=== PATIENT | male | born 1960 | race Caucasian/White ===

== ENCOUNTER 2017-01-15 16:59 | Emergency (ER) | payer OTHER ==
[~2017-01-15] VITALS: Ht 193 cm; Wt 110.7 kg
[~2017-01-15 16:59] MED LIST: CELE200C PO; DILT180C11 PO; DIVA500T2 PO; ESOM40CA PO; LORA10TA65 PO; OXYC-323 PO; PARO20TA3 PO; TIZA4TAB PO; TRAZ50TA15 PO
[2017-01-15 17:12] VITALS: BP 132/77
[2017-01-15 17:43] LABS: BASO % 0 % (0-3); EOS # 0.3 x10^3/uL (0.0-0.7); EOS % 5 % (0-3); HEMATOCRIT 39.9 % (39.0-53.0); HEMOGLOBIN 13.6 g/dL (13.0-17.5); LYMPH # 2.2 x10^3/uL (1.0-4.8); LYMPH % 40 % (24-48); MEAN CORPUSCULAR HEMOGLOBIN 31 pg (25-35); MEAN CORPUSCULAR HGB CONC 34 g/dL (31-37); MEAN CORPUSCULAR VOLUME 91 fL (79-100); MONO # 0.5 x10^3/uL (0.0-1.1); MONO % 10 % (0-9); NEUT # 2.4 x10^3uL (1.8-7.7); NEUT % 44 % (31-73); PLATELET COUNT 145 x10^3/uL (140-400); RED BLOOD COUNT 4.38 x10^6/uL (4.30-5.70); RED CELL DISTRIBUTION WIDTH 13.3 % (11.5-14.5); WHITE BLOOD COUNT 5.5 x10^3/uL (4.0-11.0)
--- NOTE | 2017-01-15 17:47 | PHYS DOC ---
Text Text See Dr. Heard chart for details. US- legs shows no findings of DVT- See formal report when available. Impression: 1. Stasis dermatitis Patient must follow-up primary care. Review all ultrasound completed here. Return if any concerns. (JERE CASTRO MD) General Chief Complaint: LOWER EXTREMITY SWELLING Stated Complaint: LOWER EXTREMITY PAIN Time Seen by MD: 17:10 Source: patient Exam Limitations: no limitations Problems: (CECILE HEARD DO) Time Seen by MD: 20:01 Problems: (JERE CASTRO MD) History of Present Illness Initial Comments Pt is 56/M to ED c/o b/l leg swelling/pain. Pt states he's been in bed past 8 days with back pain. Today he tried to go to work, at work he noticed posterior calf pain. When he looked at his legs he noted that his calves were red swollen and tender. Upon speaking to his spouse who is RN, she brought him to ED to r/o DVT. No leg weakness, no cp/sob/unger/ focal neurodef/vision change/palpitations. No prearrival treatment, no h/o coagulopathy pt is not a smoker. Onset: this morning Severity: moderate Pain/Injury Location: bilateral leg Method of Injury: unknown Modifying Factors: worse with jarring, worse with movement, improves with rest (CECILE HEARD DO) Allergies: Coded Allergies: iodine (Verified Allergy, Intermediate, rash, 01/15/17) Past Medical History Medical History: other (SVT, chronic back pain) Surgical History: cholecystectomy, other (L shoulder, R knee, C 5-6 fusion) (CECILE HEARD DO) Family History Significant Family History: heart disease (CECILE HEARD DO) Social History Smoker: non-smoker Alcohol: rarely Drugs: none (CECILE HEARD DO) Review of Systems Constitutional: denies chills, denies fever, denies malaise Respiratory: denies cough, denies shortness of breath Cardiovascular: denies chest pain, denies palpitations Gastrointestinal: denies nausea, denies vomiting Musculoskeletal: see HPI Skin: see HPI Psychiatric/Neurological: denies headache, denies numbness, denies paresthesia , denies weakness (CECILE HEARD DO) Physical Exam General Appearance: WD/WN, no apparent distress HEENT: normal ENT inspection Neck: non-tender, supple Cardiovascular/Respiratory: normal peripheral pulses, no respiratory distress Back: no CVA tenderness, no vertebral tenderness Legs: bilateral leg other (2+ pitting LE edema, +jono's b/l with erythema, hardness R>L) Neurologic/Tendon: normal sensation, normal motor functions, normal tendon functions, responds to pain, no evidence tendon injury Psychiatric: alert, oriented x 3 Skin: warm/dry (calf erythema) (CECILE HEARD DO) Orders, Labs, Meds EKG: NSR 76 bpm no STEMI Labs/US pending Pt signed out to Dr Castro at 1800 shift change. See his documentation for results/disposition. (CECILE HEARD DO) CECILE HEARD DO Jan 15, 2017 17:47 JERE CASTRO MD Jan 17, 2017 00:04
[2017-01-15 18:01] LABS: GFR 77.6
--- NOTE | 2017-01-15 18:35 | EKG ---
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
--- NOTE | 2017-01-15 18:54 | RAD ---
PROCEDURE Bilateral lower extremity venous duplex study 01/15/2017 HISTORY Bilateral leg swelling. TECHNIQUE Using a combination of real-time ultrasound imaging and color flow and pulse Doppler imaging techniques along with graded compression augmentation, duplex evaluation the major deep venous structures of both lower extremities was performed. Multiple images were obtained. FINDINGS There is no sonographic evidence of deep venous thrombosis involving the visualized deep venous structures of either lower extremity. IMPRESSION Negative study. Electronically signed by: Ricardo Sena MD (Jan 15, 2017 18:53:26)
== END 2017-01-15 20:20 | disposition home or self-care (01) ==
LOC: ER 17:12
DX: I87.2 Venous insufficiency (chronic) (peripheral) (principal); M79.605 Pain in left leg; M79.604 Pain in right leg; G89.29 Other chronic pain; R22.43 Localized swelling, mass and lump, lower limb, bilateral; Z91.041 Radiographic dye allergy status; Z98.890 Other specified postprocedural states
CPT/HCPCS: 36415; 80048; 82550; 83880; 84484; 85027; 85379; 85610; 85730; 93005; 93970; 99285-25

== ENCOUNTER 2017-04-14 13:53 | Emergency (ER) | payer OTHER ==
[~2017-04-14] VITALS: Ht 193 cm; Wt 113.4 kg
[2017-04-14 13:58] VITALS: BP 148/66
[2017-04-14] MEDS ORDERED: FLUORESCEIN 1MG EYE STRIP. OU ONE (14:30)
[2017-04-14] MEDS ORDERED: TETRACAINE 0.5% OPHTH SOLUTION 4ML BOTTLE. OS ONE (14:30)
[2017-04-14] MEDS ORDERED: FLUORESCEIN 1MG EYE STRIP. OS ONE (14:30)
[2017-04-14] MEDS ORDERED: ERYT1OIN6 OP (14:43)
[2017-04-14] MEDS ORDERED: CYCL2DRO3 OP (14:43)
[2017-04-14] MEDS ORDERED: NAPR275T59 PO (14:43)
--- NOTE | 2017-04-14 14:43 | PHYS DOC ---
Past History Past Medical History: Hypertension, Other Past Surgical History: Cholecystectomy, Other Additional Past Surgical Histo: ultimate orthopedic surgeries to include meniscal injury in his knees bilat Smoking: Quit Less Than 1 Year Alcohol Use: Rarely Drug Use: None Adult General Chief Complaint Chief Complaint: EYE PROBLEMS HPI HPI This is a pleasant 56-year-old male with mostly orthopedic problems and chronic pain issue secondary to overuse while in the . He was outside cutting branches from a tree when one actually fell and struck him in the left eye. Patient immediately felt pain and a foreign body sensation after being struck in the eye. He does not work or corrective lenses or contact lenses. He denies any double vision, blurred vision, foreign body sensation at this time only pain. Patient is having mild drainage and only very mild redness as well is actually improved. Patient is no pain when he blinks there is no facial numbness , there is no history of URI symptoms or other complaints. Patient denies any headache. Patient also denies any other trauma. Review of Systems Review of Systems Constitutional: Denies fever or chills [] Eyes: he has had a little bit of blurred vision and eye pain after being struck in the eye with a tree branch HENT: Denies nasal congestion or sore throat [] Respiratory: Denies cough or shortness of breath [] Cardiovascular: No additional information not addressed in HPI [] GI: Denies abdominal pain, nausea, vomiting, bloody stools or diarrhea [] : Denies dysuria or hematuria [] Musculoskeletal: Denies back pain or joint pain [] Integument: Denies rash or skin lesions [] Neurologic: Denies headache, focal weakness or sensory changes [] Current Medications Current Medications Current Medications Medications (Trade) Dose Ordered Sig/Heidi Start Time Stop Time Status Last Admin Dose Admin Fluorescein Sodium (Ful-Bryanna 1mg) 1 strip 1X ONCE 04/14/17 14:30 04/14/17 14:31 Tetracaine HCl (Tetracaine) 1 drop 1X ONCE 04/14/17 14:30 04/14/17 14:31 DC Allergies Allergies Allergies Coded Allergies Type Severity Reaction Last Updated Verified iodine Allergy Intermediate rash 01/15/17 Yes Physical Exam Physical Exam Constitutional: Well developed, well nourished, no acute distress, non-toxic appearance. [] HENT: Normocephalic, atraumatic, bilateral external ears normal, oropharynx moist, no oral exudates, nose normal. [] Eyes: PERRLA, EOMI, no discharge. Patient's conjunctivae are mildly injected. Patient's pain improved with the topical application of tetracaine. Patient has no Caleb's after staining of the surface of his eye, he's got no dendrites he' s got evidence of a small corneal abrasion at the 3 clock position just the lateral aspect of his iris. Patient's anterior chambers deep and quiet, lens is clear, the retinal exam shows a clear right now with no evidence of retinal hemorrhages. Patient's optic nerve is intact. Patient states her acuities were also evaluated by me and recorded by nursing staff. His eyelid noted and there is no foreign body noted. On note there is also no rink sign. Neck: Normal range of motion, no tenderness, supple, no stridor. [] Cardiovascular:Heart rate regular rhythm, no murmur [] Lungs & Thorax: Bilateral breath sounds clear to auscultation [] Skin: Warm, dry, no erythema, no rash. [] Neurologic: Alert and oriented X 3, EKG EKG [] Radiology/Procedures Radiology/Procedures [] Course & Med Decision Making Course & Med Decision Making Pertinent Labs and Imaging studies reviewed. (See chart for details) I reviewed patient's nursing notes, visual acuities, vital signs and my physical exam findings are consistent with a corneal abrasion likely secondary to traumatic injury. Updated tetanus shot done. Be given some Cyclogyl, erythromycin ointment and follow-up with his PCP for repeat some of exam in 12-24 hours to see that his eyes improving. Given precautions to return for any increasing pain , decreased sensation, or decreased visual acuity despite treatment. Impression: Hypertension, corneal abrasion, Disposition: PCP FU in 24 hrs for repeat slit lamp exam if symptoms are not improved. [] Dragon Disclaimer Dragon Disclaimer This chart was dictated in whole or in part using Voice Recognition software in a busy, high-work load, and often noisy Emergency Department environment. It may contain unintended and wholly unrecognized errors or omissions. Departure Departure: Impression: Primary Impression: Corneal abrasion, left Disposition: HOME, SELF-CARE Referrals: KEYONNA BUCK DO (PCP) Patient Instructions: Eye - Corneal Abrasion, Hypertension Additional Instructions: Please return for any new or increasing symptoms, decreased visual acuity or given any questions or concerns. Scripts Erythromycin Base (Erythromycin) 1 Gm Oint...g. 1 GM OP TID for 5 Days, MISC Prov: THOMPSON ASHBY MD 04/14/17 Cyclopentolate Hcl (CYCLOGYL) 2 Ml Drops 2 ML OP TID for 3 Days, DROP Prov: THOMPSON ASHBY MD 04/14/17 Naproxen Sodium (NAPROXEN SODIUM) 275 Mg Tablet 1 MG PO BID for 7 Days, TAB Prov: THOMPSON ASHBY MD 04/14/17 THOMPSON ASHBY MD Apr 14, 2017 14:43
[2017-04-14] MEDS ORDERED: DIPHTH,PERTUSS(ACELL),TET TOX 0.5 ML DISP.SYRIN. VAX IM ONE (15:00)
== END 2017-04-14 14:50 | disposition home or self-care (01) ==
LOC: ER 13:53
DX: S05.02XA Injury of conjunctiva and corneal abrasion without foreign body, left eye, initial encounter (principal); I10 Essential (primary) hypertension; G89.29 Other chronic pain; Z87.891 Personal history of nicotine dependence; Z91.041 Radiographic dye allergy status; W22.8XXA Striking against or struck by other objects, initial encounter; Y93.89 Activity, other specified; Y99.8 Other external cause status; Y92.89 Other specified places as the place of occurrence of the external cause
CPT/HCPCS: 90471; 90715; 99283-25

== ENCOUNTER 2018-05-07 17:56 | Emergency (ER) | payer OTHER ==
[~2018-05-07] VITALS: Ht 193 cm; Wt 120.2 kg
[2018-05-07 17:56] VITALS: BP 107/68
[~2018-05-07 17:56] MED LIST changes: +CYCL2DRO3 OP; +ERYT1OIN6 OP; +NAPR275T59 PO; +TRAZ-85 PO; -TRAZ50TA15 PO
--- NOTE | 2018-05-07 18:57 | PHYS DOC ---
Past History Past Medical History: Hypertension, Other Past Surgical History: Cholecystectomy Additional Past Surgical Histo: ultimate orthopedic surgeries to include meniscal injury in his knees bilat Smoking: Quit Less Than 1 Year Alcohol Use: Occasionally Drug Use: None Adult General Chief Complaint Chief Complaint: BACK PAIN OR INJURY [facility] HPI 67-year-old male presents with low back pain. 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 No radiculopathy is worse on the left and goes down to his knee. On the right side it only radiates into his buttocks. Patient denies loss of bowel or bladder. His sensation is intact. He is able to walk, but is very painful. Patient has known L4 L5 S1 herniated disks for which he takes Percocet. The patient did take 1 Percocet before he came to the hospital but it has not helped. Patient denies fever or chills. He was feeling fine prior to this event. He has no other complaints. Review of Systems Review of Systems Constitutional: Denies fever or chills [] Eyes: Denies change in visual acuity, redness, or eye pain [] HENT: Denies nasal congestion or sore throat [] Respiratory: Denies cough or shortness of breath [] Cardiovascular: No additional information not addressed in HPI [] GI: Denies abdominal pain, nausea, vomiting, bloody stools or diarrhea [] : Denies dysuria or hematuria [] Musculoskeletal: Low back pain with radiculopathy[] Integument: Denies rash or skin lesions [] Neurologic: Denies headache, focal weakness or sensory changes [] Endocrine: Denies polyuria or polydipsia [] All other systems were reviewed and found to be within normal limits, except as documented in this note. Current Medications Current Medications Current Medications Medications (Trade) Dose Ordered Sig/Heidi Start Time Stop Time Status Last Admin Dose Admin Hydromorphone HCl (Dilaudid) 1 mg 1X ONCE 05/07/18 19:00 05/07/18 19:01 Methylprednisolone Sodium Succinate (SOLU-Medrol 125MG VIAL) 125 mg 1X ONCE 05/07/18 19:00 05/07/18 19:01 Ondansetron HCl (Zofran) 4 mg 1X ONCE 05/07/18 19:00 05/07/18 19:01 Allergies Allergies Allergies Coded Allergies Type Severity Reaction Last Updated Verified iodine Allergy Intermediate rash 01/15/17 Yes Physical Exam Physical Exam Constitutional: Well developed, well nourished, no acute distress, non-toxic appearance. Patient lying on his left side and a half position. [] HENT: Normocephalic, atraumatic, bilateral external ears normal, oropharynx moist, no oral exudates, nose normal. [] Eyes: PERRLA, EOMI, conjunctiva normal, no discharge. [] Neck: Normal range of motion, no tenderness, supple, no stridor. [] Cardiovascular:Heart rate regular rhythm, no murmur [] Lungs & Thorax: Bilateral breath sounds clear to auscultation [] Abdomen: Bowel sounds normal, soft, no tenderness, no masses, no pulsatile masses. [] Skin: Warm, dry, no erythema, no rash. [] Back: Marked tenderness, paraspinal muscle spasm in the lumbar bilateral[] Extremities: No tenderness, no cyanosis, no clubbing, ROM intact, no edema. [] Neurologic: Alert and oriented X 3, normal motor function, normal sensory function, no focal deficits noted. [] Psychologic: Affect normal, judgement normal, mood normal. [] Current Patient Data Vital Signs Vital Signs Date Time Temp Pulse Resp B/P (MAP) Pulse Ox O2 Delivery O2 Flow Rate FiO2 05/07/18 17:56 98.2 79 20 95 Room Air EKG EKG [] Radiology/Procedures Radiology/Procedures [] Impressions: History: Back injury today. Low back pain radiating down both legs. Comparison: CT lumbar spine July 03, 2012. Findings: AP and lateral views of lumbar spine, 3 images. 5 lumbar type vertebral bodies are present. Cholecystectomy clips are present. No acute fracture or acute malalignment is identified. No spondylolysis or spondylolisthesis is appreciated. Relatively mild degeneration is seen with some narrowing of the disc space at L3-4 and L4-5. Impression: No acute osseous traumatic injury identified. Electronically signed by: William Will MD (05/07/2018 7:23 PM) [facility] Course & Med Decision Making Course & Med Decision Making Pertinent Labs and Imaging studies reviewed. (See chart for details) The patient's labs are unremarkable. His lumbar x-ray does not show any acute findings. I have given the patient 1 mg of Dilaudid as well as 125 mg Solu- Medrol IV. He already has pain medication at home. I will discharge him with 5 day course of prednisone for inflammation. [] Dragon Disclaimer Dragon Disclaimer This electronic medical record was generated, in whole or in part, using a voice recognition dictation system. Departure Departure: Referrals: KEYONNA BUCK DO (PCP) Scripts Prednisone (PREDNISONE) 50 Mg Tablet 1 TAB PO DAILY, #5 TAB Prov: MICHELLE HER DO 05/07/18 MICHELLE HER DO May 07, 2018 18:57
[2018-05-07] MEDS ORDERED: methylPREDNISolone SOD SUCC PF 125 MG/2 ML VIAL. IV ONE (19:00)
[2018-05-07] MEDS ORDERED: HYDROmorphone PF 1 MG/ML DISP.SYRIN IV ONE (19:00)
[2018-05-07] MEDS ORDERED: ONDANSETRON PF 4 MG/2 ML VIAL. IV ONE (19:00)
--- NOTE | 2018-05-07 19:26 | RAD ---
History: Back injury today. Low back pain radiating down both legs. Comparison: CT lumbar spine July 03, 2012. Findings: AP and lateral views of lumbar spine, 3 images. 5 lumbar type vertebral bodies are present. Cholecystectomy clips are present. No acute fracture or acute malalignment is identified. No spondylolysis or spondylolisthesis is appreciated. Relatively mild degeneration is seen with some narrowing of the disc space at L3-4 and L4-5. Impression: No acute osseous traumatic injury identified. Electronically signed by: William Will MD (05/07/2018 7:23 PM) [facility]
[2018-05-07 19:42] LABS: BASO % 1 % (0-3); EOS # 0.3 x10^3/uL (0.0-0.7); EOS % 6 % (0-3); HEMATOCRIT 39.2 % (39.0-53.0); HEMOGLOBIN 13.5 g/dL (13.0-17.5); LYMPH # 2.3 x10^3/uL (1.0-4.8); LYMPH % 48 % (24-48); MEAN CORPUSCULAR HEMOGLOBIN 32 pg (25-35); MEAN CORPUSCULAR HGB CONC 35 g/dL (31-37); MEAN CORPUSCULAR VOLUME 91 fL (79-100); MONO # 0.5 x10^3/uL (0.0-1.1); MONO % 11 % (0-9); NEUT # 1.7 x10^3uL (1.8-7.7); NEUT % 35 % (31-73); PLATELET COUNT 136 x10^3/uL (140-400); RED BLOOD COUNT 4.29 x10^6/uL (4.30-5.70); RED CELL DISTRIBUTION WIDTH 13.9 % (11.5-14.5); WHITE BLOOD COUNT 4.9 x10^3/uL (4.0-11.0)
[2018-05-07 19:48] LABS: CALCIUM 9.3 mg/dL (8.5-10.1); GFR 77.3
[2018-05-07] MEDS ORDERED: PRED50TA PO (19:59)
== END 2018-05-07 20:05 | disposition home or self-care (01) ==
LOC: ER 17:56
DX: M54.16 Radiculopathy, lumbar region (principal); I10 Essential (primary) hypertension; Z90.49 Acquired absence of other specified parts of digestive tract; Z87.891 Personal history of nicotine dependence; Z91.041 Radiographic dye allergy status
CPT/HCPCS: 36415; 72100; 80048; 85025; 96374; 96375; 99285; J1170; J2405; J2930

== ENCOUNTER 2020-09-26 19:11 | Emergency (ER) | payer OTHER ==
[~2020-09-26] VITALS: Ht 375.9 cm; Wt 116.0 kg
[~2020-09-26 19:11] MED LIST changes: -OXYC-323 PO; +OXYC1TAB15 PO; +PRED50TA PO; -TIZA4TAB PO; +TIZA4TAB2 PO; +TRAZ-120 PO; -TRAZ-85 PO
[2020-09-26] MEDS ORDERED: IV NORMAL SALINE 500ML 500 ML IV ONE (19:30)
--- NOTE | 2020-09-26 19:33 | EKG ---
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
--- NOTE | 2020-09-26 19:33 | PHYS DOC ---
Past History Past Medical History: Hypertension, Other Past Surgical History: Cholecystectomy Additional Past Surgical Histo: ultimate orthopedic surgeries to include meniscal injury in his knees bilat Smoking: Quit Less Than 1 Year Alcohol Use: Occasionally Drug Use: None General Adult EDM: Chief Complaint: Palpitations HPI: HPI: Patient is a 60-year-old male coming in for palpitations he says since he woke up this morning. Patient states that he feels like his heart rate is a regular. States he has a history of SVT but this feels differently. Patient was diagnosed with Covid 8 days ago. Has not had any fevers but is complaining of worsening shortness of breath and dyspnea on exertion. Denies any chest pain or leg swelling. Denies any vomiting or diarrhea. Denies any cardiac history other than SVT. Denies any new medications, takes medications for chronic pain, PTSD, difficulty sleeping, and migraines. Review of Systems: Review of Systems: Constitutional: Denies fever or chills Eyes: Denies change in visual acuity HENT: Denies nasal congestion or sore throat Respiratory: Cough and shortness of breath Cardiovascular: Denies chest pain or edema, but is complaining of palpitations and irregular heart rate GI: Denies abdominal pain, nausea, vomiting, bloody stools or diarrhea : Denies dysuria Musculoskeletal: Denies back pain or joint pain Integument: Denies rash Neurologic: Denies headache, focal weakness or sensory changes Endocrine: Denies polyuria or polydipsia Lymphatic: Denies swollen glands Psychiatric: Denies any current depression or anxiety Allergies: Allergies: Allergies Coded Allergies Type Severity Reaction Last Updated Verified iodine Allergy Intermediate rash 01/15/17 Yes Physical Exam: PE: Constitutional: Well developed, well nourished, no acute distress, non-toxic appearance. [] HENT: Normocephalic, atraumatic, bilateral external ears normal, oropharynx moist, no oral exudates, nose normal. [] Eyes: PERRLA, EOMI, conjunctiva normal, no discharge. [] Neck: Normal range of motion, no tenderness, supple, no stridor. [] Cardiovascular:Heart rate regular rhythm, no murmur [] Lungs & Thorax: Bilateral breath sounds clear to auscultation [] Abdomen: Bowel sounds normal, soft, no tenderness, no masses, no pulsatile masses. [] Skin: Warm, dry, no erythema, no rash. [] Back: No tenderness, no CVA tenderness. [] Extremities: No tenderness, no cyanosis, no clubbing, ROM intact, no edema. [] Neurologic: Alert and oriented X 3, normal motor function, normal sensory function, no focal deficits noted. [] Psychologic: Affect normal, judgement normal, mood normal. [] EKG: EKG: Sinus rhythm, normal axis, heart rate 87 beats per minutes, no ST elevation or depression, read somewhat inhibited by artifact and poor baseline. No change when compared to ECG from 01-15- [] Radiology/Procedures: Radiology/Procedures: Exam: Chest one view INDICATION: Covid TECHNIQUE: Frontal view of the chest Comparisons: None FINDINGS: The cardiomediastinal silhouette and pulmonary vessels are within normal limits. The lung and pleural spaces are clear. IMPRESSION: No acute cardiopulmonary process. [] Heart Score: HEART Score for Chest Pain: HEART Score for Chest Pain Response (Comments) Value History Slighlty/Non-Suspicious 0 ECG Normal 0 Age >45 - < 65 1 Risk Factors No Risk Factors 0 Troponin < Normal Limit 0 Total 1 Risk Factors: Risk Factors: DM, Current or recent (<one month) smoker, HTN, HLP, family history of CAD, obesity. Risk Scores: Score 0 - 3: 2.5% MACE over next 6 weeks - Discharge Home Score 4 - 6: 20.3% MACE over next 6 weeks - Admit for Clinical Observation Score 7 - 10: 72.7% MACE over next 6 weeks - Early Invasive Strategies Course & Med Decision Making: Course & Med Decision Making Pertinent Labs and Imaging studies reviewed. (See chart for details) Work-up unremarkable, no change in ECG from previous 3 years ago. Patient in sinus regular rhythm while on monitor. Patient states that after IV fluids he is feeling better. [] Dragon Disclaimer: Dragon Disclaimer: This electronic medical record was generated, in whole or in part, using a voice recognition dictation system. Departure Departure: Impression: Primary Impression: Palpitations with regular cardiac rhythm Disposition: 01 DC HOME SELF CARE/HOMELESS Condition: IMPROVED Referrals: BUSTER CISSE DO (PCP) Patient Instructions: Palpitations LUCY ROBIN MD Sep 26, 2020 19:33
[2020-09-26 19:58] LABS: BASO % 0 % (0-3); EOS # 0.2 x10^3/uL (0.0-0.7); EOS % 4 % (0-3); HEMATOCRIT 40.5 % (39.0-53.0); HEMOGLOBIN 13.7 g/dL (13.0-17.5); LYMPH # 1.2 x10^3/uL (1.0-4.8); LYMPH % 29 % (24-48); MEAN CORPUSCULAR HEMOGLOBIN 31 pg (25-35); MEAN CORPUSCULAR HGB CONC 34 g/dL (31-37); MEAN CORPUSCULAR VOLUME 92 fL (79-100); MONO # 0.3 x10^3/uL (0.0-1.1); MONO % 8 % (0-9); NEUT # 2.3 x10^3uL (1.8-7.7); NEUT % 59 % (31-73); PLATELET COUNT 129 x10^3/uL (140-400); RED BLOOD COUNT 4.38 x10^6/uL (4.30-5.70); RED CELL DISTRIBUTION WIDTH 12.8 % (11.5-14.5)
--- NOTE | 2020-09-26 20:06 | RAD ---
Exam: Chest one view INDICATION: Covid TECHNIQUE: Frontal view of the chest Comparisons: None FINDINGS: The cardiomediastinal silhouette and pulmonary vessels are within normal limits. The lung and pleural spaces are clear. IMPRESSION: No acute cardiopulmonary process. Electronically signed by: Kaitlyn Boykin MD (09/26/2020 8:03 PM) [place]
[2020-09-26 20:09] LABS: CALCIUM 8.6 mg/dL (8.5-10.1); CREATININE 1.2 mg/dL (0.7-1.3); POTASSIUM 3.8 mmol/L (3.5-5.1)
[2020-09-26 20:22] LABS: ALBUMIN 3.3 g/dL (3.4-5.0); MAGNESIUM 2.2 mg/dL (1.8-2.4); TOTAL BILIRUBIN 0.4 mg/dL (0.2-1.0); TOTAL PROTEIN 6.6 g/dL (6.4-8.2)
[2020-09-26 21:29] LABS: BACTERIA,URINE 0 /HPF (0-FEW); BILIRUBIN,URINE NEG (NEG); CLARITY,URINE CLEAR; COLOR,URINE YELLOW; GLUCOSE,URINE NEG (NEG); NITRITE,URINE NEG (NEG); RBC,URINE 0 /HPF (0-2); WBC,URINE 0 /HPF (0-4)
[2020-09-26 21:45] VITALS: BP 122/69
== END 2020-09-26 21:45 | disposition home or self-care (01) ==
LOC: ER 19:11
DX: R00.2 Palpitations (principal); R06.02 Shortness of breath; I10 Essential (primary) hypertension; Z87.891 Personal history of nicotine dependence; Z88.8 Allergy status to other drugs, medicaments and biological substances
CPT/HCPCS: 36415; 71045; 80053; 81001; 83605; 83735; 83880; 84484; 85025; 85379; 85610; 87040; 93005; 96360; 99285; J7040